=== PATIENT | female | born 1990 | race Caucasian/White ===

== ENCOUNTER → 2020-01-26 | Outpatient (CLI) | payer BC, OTHER ==
[2016-10-16 19:29] VITALS: BP 105/71
[~2020-01-26] MED LIST: HYDR-2761 PO; ONDA4TAB10 SL
--- NOTE | 2020-01-26 11:43 | KCIC ---
EXAM: Bilateral digital diagnostic mammogram with tomosynthesis; bilateral breast sonogram. HISTORY: 29-year-old female presents with a palpable right breast lump and a two-year history of colostrum appearing nipple discharge. TECHNIQUE: Full-field digital craniocaudal and mediolateral oblique 2D and 3D tomosynthesis images of both breasts are obtained for evaluation. Computer aided detection with [employer] software version 9.3 was applied. Sonographic imaging of both breasts including all 4 quadrants and the retroareolar regions was performed. COMPARISON: None. This is a baseline mammogram. BREAST PARENCHYMAL DENSITY: Level C - Heterogeneously dense. FINDINGS: There are multiple circumscribed nodular densities within both breasts, the multiplicity and appearance of which favors benignity. No architectural distortion or suspicious calcification is seen. Sonographic imaging of the right breast demonstrates a bilobed suspected complicated cystic lesion with posterior through transmission at the 12:00 position 5 cm from the nipple measuring 7 mm. There is a similar suspected cystic lesion measuring 5 mm at the 11:00 position 4 cm from the nipple. There is a circumscribed solid-appearing nodule measuring 1.4 cm at the 12:00 position 3 cm from the nipple. There is a similar-appearing suspected solid circumscribed nodule at the 10:00 position 10 cm from the nipple measuring 1.3 cm. There are dilated ducts within the subareolar aspect of the right breast. There are fibrocystic changes throughout the right breast No convincing intraductal lesion is seen. Sonographic imaging of the left breast demonstrates a solid appearing circumscribed hypoechoic nodule at the 2:00 position 9 cm from the nipple measuring 1.3 cm. There is a similar-appearing smaller nodule measuring 8 mm at the 12:00 position 8 cm from the nipple. There are dilated ducts within the subareolar aspect of the left breast. No convincing intraductal lesion is seen. There are fibrocystic changes throughout the left breast. IMPRESSION: 1. Multiple circumscribed nodular densities within both breasts demonstrated mammographically. 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 The lesion at the 10:00 position likely corresponds with the site of palpable concern. 2. Multiple suspected cystic lesions and dilated ducts within both breasts. No convincing intraductal lesion is seen. Given a two-year history of bilateral nipple discharge, a galactogram can be considered if the discharge changes in color, consistency or increases in amount or is readily expressible and there is concern for an occult intraductal lesion. 3. BI-RADS Category 3: Probably benign finding(s). Short term follow up with a bilateral breast sonogram is recommended in 6 months to confirm stability of the aforementioned findings. If your mammogram demonstrates that you have dense breast tissue, which could hide abnormalities, and if you have other risk factors for breast cancer that have been identified, you might benefit from supplemental screening tests that may be suggested by your ordering physician. Dense breast tissue, in and of itself, is a relatively common condition. This information is not provided to cause undue concern, but rather to raise your awareness and to promote discussion with your physician regarding the presence of other risk factors, in addition to dense breast tissue. A report of your mammography results will be sent to you and your physician. You should contact your physician if you have any questions or concerns regarding this report. Mammography is a sensitive method for finding small breast cancers, but it does not detect them all and is not a substitute for careful clinical examination. A negative mammogram does not negate a clinically suspicious finding and should not result in delay in biopsying a clinically suspicious abnormality. PQRS compliance statement - Patient information was entered into a reminder system with a target due date for the next mammogram. "Our facility is accredited by the [employer] Mammography Program." Electronically signed by: Taylor Akbar MD (01/26/2020 11:40 AM) [facility]
== END ==
LOC: KCIC US 09:35
PROVIDERS: ATTEND Family Medicine
DX: N63.10 Unspecified lump in the right breast, unspecified quadrant (principal); N63.20 Unspecified lump in the left breast, unspecified quadrant; N64.89 Other specified disorders of breast
CPT/HCPCS: 76641; 77066; G0279; 77062

== ENCOUNTER → 2021-02-01 | Outpatient (CLI) | payer BC ==
[2016-10-16 19:29] VITALS: BP 105/71
--- NOTE | 2021-02-01 16:30 | RAD ---
EXAM: Ultrasound OB Greater than 14 weeks INDICATION: Reason: ut/size date discpreancy / Spl. Instructions: / History: TECHNIQUE: Real-time obstetrical ultrasound was performed with permanent freeze-frame documentation. COMPARISON: None. FINDINGS: POSITION: Cephalic HEART RATE: 155 beats per minute DEAN: Normal PLACENTA: Posterior, grade 1. Not low-lying CERVICAL LENGTH: 6.2 cm MATERNAL UTERUS: Unremarkable. MATERNAL ADNEXA: Unremarkable. AGE/DATES: Gestational Age by LMP: 19 weeks 5 days Gestation Age by US: 19 weeks 6 days EDC by LMP: 06/23/2021 EDC by US: 06/22/2021 WEIGHT: 314 grams +/- 46 grams PERCENTILE WEIGHT: Not estimated BIOMETRIC PARAMETERS: BPD: 4.7 cm corresponding with 20 weeks 2 days HC: 17.1 cm corresponding with 19 weeks 5 days AC: 14.6 cm corresponding with 19 weeks 6 days FL: 3.1 cm corresponding with 19 weeks 5 days ANATOMY: CARDIAC: Normal four chamber heart. Normal right and left ventricular outflow tracts. UMBILICAL CORD: Normal 3 vessel cord. Normal cord insertion. BRAIN: Unremarkable. NOSE/LIPS: Not well seen SPINE: Unremarkable. EXTREMITIES: Unremarkable. STOMACH: Unremarkable. KIDNEYS: Unremarkable. BLADDER: Unremarkable. IMPRESSION: Normal OB ultrasound demonstrating a single viable fetus in cephalic position. Estimated gestational age of 19 weeks 6 days and EDC of 06/22/2021. Electronically signed by: Shiraz Ellis MD (02/01/2021 4:27 PM) [id number]
== END ==
LOC: US 10:17
PROVIDERS: ATTEND Obstetrics & Gynecology
DX: Z34.92 Encounter for supervision of normal pregnancy, unspecified, second trimester (principal); Z3A.19 19 weeks gestation of pregnancy
CPT/HCPCS: 76805

== ENCOUNTER 2021-03-28 17:08 | Observation (INO) | payer BC ==
[2016-10-16 19:29] VITALS: BP 105/71
[2021-03-28] MEDS ORDERED: IV RINGERS,LACTATED 1000ML 1,000 ML IV PRN (17:30)
[2021-03-28 17:39] LABS: BILIRUBIN,URINE NEGATIVE (NEG); CLARITY,URINE TURBID; COLOR,URINE YELLOW; NITRITE,URINE NEGATIVE (NEG); PROTEIN,URINE NEGATIVE (NEG-TRACE)
[2021-03-28 17:46] LABS: AMORPHOUS SEDIMENT,UR PRESENT /HPF
[2021-03-28 17:47] LABS: BACTERIA,URINE FEW /HPF (0-FEW); RBC,URINE 0 /HPF (0-2)
== END 2021-03-28 18:16 | disposition home or self-care (01) ==
LOC: 3 SO LND 17:08
PROVIDERS: ADMIT Obstetrics & Gynecology; ATTEND Obstetrics & Gynecology
DX: O36.8120 Decreased fetal movements, second trimester, not applicable or unspecified (principal); Z3A.27 27 weeks gestation of pregnancy; Z79.899 Other long term (current) drug therapy
CPT/HCPCS: 59025; 81001; 87086; G0378; G0379

== ENCOUNTER 2021-05-10 19:29 | Inpatient (IN) | payer BC ==
[~2021-05-10] VITALS: Ht 152.4 cm; Wt 64.5 kg
[2021-05-10] MEDS ORDERED: ACETAMINOPHEN 325 MG TABLET. PO PRN ×2 (19:45→21:45)
[2021-05-10 20:00] LABS: BILIRUBIN,URINE SMALL (NEG); CLARITY,URINE CLEAR; COLOR,URINE AMBER; NITRITE,URINE NEGATIVE (NEG); PROTEIN,URINE NEGATIVE (NEG-TRACE)
[2021-05-10 20:06] LABS: BACTERIA,URINE 0 /HPF (0-FEW); RBC,URINE 0 /HPF (0-2); WBC,URINE OCC /HPF (0-4)
[2021-05-10 20:07] LABS: AMPHETAMINE/METHAMPHETAMINE NEG (NEG); BARBITURATES NEG (NEG); BENZODIAZEPINES NEG (NEG); CANNABINOIDS POS (NEG); COCAINE NEG (NEG); METHADONE NEG (NEG); OPIATES NEG (NEG); PHENCYCLIDINE NEG (NEG)
[2021-05-10] MEDS: IV RINGERS,LACTATED 1000ML 1,000 ML IV PRN ×2 (20:15→21:13)
[2021-05-10 21:24] LABS: AMNIO PT POSITIVE
[2021-05-10] MEDS ORDERED: AZITHROMYCIN 250 MG TABLET. PO ONE (21:30)
[2021-05-10] MEDS ORDERED: AMPICILLIN SODIUM 2 GM in IV NORMAL SALINE 100ML 100 ML IV ONE (21:30)
--- NOTE | 2021-05-10 21:30 | PDOC1 ---
MUSIC SOUND LIGHT TECHNICIAN H&P Date of Admission: Date of Admission: May 10, 2021 at 19:29 History of Present Illness: EDC: 06/23/21 LMP: 09/16/20 31y @ 33.5 by L=7 who presented to L&D with ctxs. The pt was ctxing frequently (q1-2 min). At the time the pt was dilated to 2 cm. About an hour into her eval she reported LOF. She was grossly ruptured and had positive aminoswab. The pt was started on abx for latency and started on a course of BMTZ. PMH: Kidney stones. PSH: wisdom teeth extraction. Meds: PNV, Zofran All: NKDA OBHx: TSVD x 2 SH: 1/2 PPD, no EtOH FH: Adopted, family history unknown. Medications: Meds: Current Medications Medications (Trade) Dose Ordered Sig/Cooper Route PRN Reason Start Time Stop Time Status Last Admin Dose Admin Ringer's Solution 1,000 ml @ 125 mls/hr Q8H PRN IV hydration 05/10/21 19:45 05/10/21 21:13 Allergies: Coded Allergies: No Known Drug Allergies (Unverified , 11/28/14) Physical Exam: PE: GENERAL: No apparent distress. Alert and oriented. HEENT: Head normocephalic, atraumatic. NECK: Supple LUNGS: Clear to auscultation. HEART: RRR, S1, S2 present, pulses intact ABDOMEN: Soft, positive bowel sounds. EXTREMITIES: No cyanosis or edema. NEUROLOGIC: Normal speech, normal tone PSYCHIATRIC: Normal affect, normal mood. SKIN: No ulceration. FHT: 130s +acels/no decls/mLTV [place]: 2-3 min SVE: 2-3 min Labs: Laboratory Tests Test 05/10/21 19:50 05/10/21 21:05 Urine Collection Type Unknown Urine Color Yolanda Urine Clarity Clear Urine pH 6.0 (<5.0-8.0) Urine Specific [place] 1.025 (1.000-1.030) Urine Protein Negative mg/dL (NEG-TRACE) Urine Glucose (UA) Negative mg/dL (NEG) Urine Ketones (Stick) Trace mg/dL (NEG) Urine Blood Negative (NEG) Urine Nitrite Negative (NEG) Urine Bilirubin Small (NEG) Urine Urobilinogen Dipstick 1.0 mg/dL (0.2 mg/dL) Urine Leukocyte Esterase Negative (NEG) Urine RBC 0 /HPF (0-2) Urine WBC Occ /HPF (0-4) Urine Squamous Epithelial Cells Mod /LPF Urine Bacteria 0 /HPF (0-FEW) Urine Mucus Marked /LPF Urine Opiates Screen Neg (NEG) Urine Methadone Screen Neg (NEG) Urine Barbiturates Neg (NEG) Urine Phencyclidine Screen Neg (NEG) Urine Amphetamine/Methamphetamine Neg (NEG) Urine Benzodiazepines Screen Neg (NEG) Urine Cocaine Screen Neg (NEG) Urine Cannabinoids Screen Pos (NEG) Urine Ethyl Alcohol Neg (NEG) Amniotic Fluid Swab Test Positive Assessment & Plan: A/P 31y @ 33.5 by L=7 1.) PPROM started on Azirtho/Amp for latency, will induce at 34wks 2.) PTC due to gestation will stop ctxs 3.) N/V - on Zofran 4.) Jesus NI 5.) Tob use - discussed cessation 6.) Fetus cat I FHT, vtx by BSUS, BMTZ #1 at 2216 7.) GBS obtained on Amp until results return 8.) DPS - Pvt insurance 9.) Pap PP 10.) Boy - Jatin 11.) TDAP given 04/18/21 CHRISTIANO UGTIERREZ MD May 10, 2021 21:30
[2021-05-10 21:45] VITALS: BP 126/60
[2021-05-10] MEDS ORDERED: 0.9 % SODIUM CHLORIDE 10 ML DISP.SYRIN. IV PRN (21:45)
[2021-05-10] MEDS ORDERED: TERBUTALINE 1 MG/ML VIAL. SQ PRN (21:45)
[2021-05-10] MEDS ORDERED: OXYTOCIN 30 UNIT/500 ML PREMIX 500 ML IV PRN ×2 (21:45)
[2021-05-10] MEDS ORDERED: LIDOCAINE 1% PF 30 ML VIAL. INJ PRN (21:45)
[2021-05-10] MEDS ORDERED: BUTORPHANOL 2 MG/ML VIAL. IVP PRN ×2 (21:45)
[2021-05-10] MEDS ORDERED: IV RINGERS,LACTATED 1000ML 1,000 ML IV SCH (21:45)
[2021-05-10] MEDS: BETAMET ACET&NA PHOS 30 MG/5 ML VIAL. IM SCH (22:16)
[2021-05-10 22:23] LABS: BASO % 0 % (0-3); EOS # 0.4 x10^3/uL (0.0-0.7); EOS % 2 % (0-3); HEMATOCRIT 33.5 % (36.0-47.0); HEMOGLOBIN 11.6 g/dL (12.0-15.5); LYMPH # 3.4 x10^3/uL (1.0-4.8); LYMPH % 20 % (24-48); MEAN CORPUSCULAR HEMOGLOBIN 28 pg (25-35); MEAN CORPUSCULAR HGB CONC 35 g/dL (31-37); MEAN CORPUSCULAR VOLUME 81 fL (79-100); MONO # 1.2 x10^3/uL (0.0-1.1); MONO % 7 % (0-9); NEUT % 71 % (31-73); PLATELET COUNT 248 x10^3/uL (140-400); RED BLOOD COUNT 4.16 x10^6/uL (3.50-5.40); RED CELL DISTRIBUTION WIDTH 13.8 % (11.5-14.5)
[2021-05-11] MEDS: AMPICILLIN SODIUM 1 GM in IV NORMAL SALINE 50ML 50 ML IV SCH ×6 (01:38→21:19)
[2021-05-11] MEDS: IV RINGERS,LACTATED 1000ML 1,000 ML IV PRN ×2 (05:05→18:58)
--- NOTE | 2021-05-11 09:49 | PDOC ---
SUPERVISOR [employer]S PROGRESS NOTE Date of Service: DATE: 05/11/21 TIME: 09:49 Subjective: Discussed plan with pt. Pt not feeling many ctxs at this point Objective: Vital Signs: Vital Signs Date Time Temp Pulse Resp B/P (MAP) Pulse Ox O2 Delivery O2 Flow Rate FiO2 05/10/21 21:45 98.7 105 18 126/60 (82) 96 Room Air 98.7 Vital Signs Date Time Temp Pulse Resp B/P (MAP) Pulse Ox O2 Delivery O2 Flow Rate FiO2 05/10/21 21:45 98.7 105 18 126/60 (82) 96 Room Air 98.7 Labs: Laboratory Tests Test 05/10/21 19:50 05/10/21 21:05 05/10/21 22:14 05/10/21 22:25 Urine Collection Type Unknown Urine Color Yolanda Urine Clarity Clear Urine pH 6.0 (<5.0-8.0) Urine Specific [place] 1.025 (1.000-1.030) Urine Protein Negative mg/dL (NEG-TRACE) Urine Glucose (UA) Negative mg/dL (NEG) Urine Ketones (Stick) Trace mg/dL (NEG) Urine Blood Negative (NEG) Urine Nitrite Negative (NEG) Urine Bilirubin Small (NEG) Urine Urobilinogen Dipstick 1.0 mg/dL (0.2 mg/dL) Urine Leukocyte Esterase Negative (NEG) Urine RBC 0 /HPF (0-2) Urine WBC Occ /HPF (0-4) Urine Squamous Epithelial Cells Mod /LPF Urine Bacteria 0 /HPF (0-FEW) Urine Mucus Marked /LPF Urine Opiates Screen Neg (NEG) Urine Methadone Screen Neg (NEG) Urine Barbiturates Neg (NEG) Urine Phencyclidine Screen Neg (NEG) Urine Amphetamine/Methamphetamine Neg (NEG) Urine Benzodiazepines Screen Neg (NEG) Urine Cocaine Screen Neg (NEG) Urine Cannabinoids Screen Pos (NEG) Urine Ethyl Alcohol Neg (NEG) Amniotic Fluid Swab Test Positive White Blood Count 17.0 x10^3/uL (4.0-11.0) H Red Blood Count 4.16 x10^6/uL (3.50-5.40) Hemoglobin 11.6 g/dL (12.0-15.5) L Hematocrit 33.5 % (36.0-47.0) L Mean Corpuscular Volume 81 fL (79-100) Mean Corpuscular Hemoglobin 28 pg (25-35) Mean Corpuscular Hemoglobin Concent 35 g/dL (31-37) Red Cell Distribution Width 13.8 % (11.5-14.5) Platelet Count 248 x10^3/uL (140-400) Neutrophils (%) (Auto) 71 % (31-73) Lymphocytes (%) (Auto) 20 % (24-48) L Monocytes (%) (Auto) 7 % (0-9) Eosinophils (%) (Auto) 2 % (0-3) Basophils (%) (Auto) 0 % (0-3) Neutrophils # (Auto) 12.0 x10^3/uL (1.8-7.7) H Lymphocytes # (Auto) 3.4 x10^3/uL (1.0-4.8) Monocytes # (Auto) 1.2 x10^3/uL (0.0-1.1) H Eosinophils # (Auto) 0.4 x10^3/uL (0.0-0.7) Basophils # (Auto) 0.0 x10^3/uL (0.0-0.2) Treponema pallidum Antibody Nonreactive (Nonreactive) SARS-CoV-2 RNA (SANGEETA) Negative (Negative) SARS-CoV-2 Antigen (Rapid) Negative (NEGATIVE) Laboratory Tests 05/10/21 22:14 Laboratory Tests 05/10/21 22:14 Physical Exam: GENERAL: No apparent distress. Alert and oriented. HEENT: Head normocephalic, atraumatic. NECK: Supple LUNGS: Clear to auscultation. HEART: RRR, S1, S2 present, pulses intact ABDOMEN: Soft, positive bowel sounds. EXTREMITIES: No cyanosis or edema. NEUROLOGIC: Normal speech, normal tone PSYCHIATRIC: Normal affect, normal mood. SKIN: No ulceration. FHT: 150s +acels/no decls/mLTV [place]: 10-15 min Assessment & Plan: A/P 31y @ 33.6 by L=7 1.) PPROM on Azirtho/Amp for latency, AF, no s/s of infection or abruption, will induce at 34wks 2.) PTC ctxs have slowed since last night 3.) N/V - on Zofran 4.) Jesus NI 5.) Tob use - discussed cessation 6.) Fetus cat I FHT, vtx by BSUS, BMTZ #1 at 2216 7.) GBS pending on Amp until results return 8.) DPS - Pvt insurance 9.) Pap PP 10.) Boy - Jatin 11.) TDAP given 04/18/21 CHRISTIANO GUTIERREZ MD May 11, 2021 09:49
[2021-05-11] MEDS: BETAMET ACET&NA PHOS 30 MG/5 ML VIAL. IM SCH (18:47)
[2021-05-11] MEDS: CALCIUM CARBONATE 500 MG TAB.CHEW PO PRN (19:20)
[2021-05-12] MEDS: AMPICILLIN SODIUM 1 GM in IV NORMAL SALINE 50ML 50 ML IV SCH ×3 (01:15→09:30)
--- NOTE | 2021-05-12 07:49 | PDOC ---
WASTE COTTON CLEANER PROGRESS NOTE Date of Service: DATE: 05/12/21 TIME: 07:46 Subjective: Pt comfortable. Will allow to eat breakfast. Physical Exam: GENERAL: No apparent distress. Alert and oriented. HEENT: Head normocephalic, atraumatic. NECK: Supple LUNGS: Clear to auscultation. HEART: RRR, S1, S2 present, pulses intact ABDOMEN: Soft, positive bowel sounds. EXTREMITIES: No cyanosis or edema. NEUROLOGIC: Normal speech, normal tone PSYCHIATRIC: Normal affect, normal mood. SKIN: No ulceration. Assessment & Plan: A/P 31y @ 34.0 by L=7 1.) PPROM on Azirtho/Amp for latency, AF, no s/s of infection or abruption, will start Pit now since 34wks 2.) N/V - on Zofran 3.) Jesus NI 4.) Tob use - discussed cessation 5.) Fetus cat I FHT, vtx by BSUS, BMTZ #2 at 2216 6.) GBS pending on Amp 7.) DPS - Pvt insurance 8.) Pap PP 9.) Boy - Jatin 10.) TDAP given 04/18/21 CHRISTIANO GUTIERREZ MD May 12, 2021 07:49
[2021-05-12] MEDS ORDERED: OXYTOCIN 30 UNIT/500 ML PREMIX 500 ML IV PRN ×2 (08:00→15:00)
[2021-05-12] MEDS ORDERED: OXYTOCIN PREMIX 30 UNIT/500 ML NS BAG. IV ONE (08:00)
[2021-05-12 08:25] VITALS: BP 95/62
[2021-05-12] MEDS: CALCIUM CARBONATE 500 MG TAB.CHEW PO PRN (09:12)
[2021-05-12] MEDS: IV RINGERS,LACTATED 1000ML 1,000 ML IV PRN (10:14)
[2021-05-12] MEDS ORDERED: ROPIVacaine 0.2% PF 10 ML VIAL. ONE ×2 (10:46→11:00)
[2021-05-12] MEDS ORDERED: fentaNYL PF VIAL 100 MCG/2 ML VIAL ONE (10:46)
[2021-05-12] MEDS ORDERED: L&D EPIDURAL SYRINGE 50 ML ONE (10:47)
[2021-05-12] MEDS ORDERED: L&D EPIDURAL 50 ML SYRINGE. ONE (11:00)
[2021-05-12] MEDS ORDERED: NALOXONE 0.4 MG/ML VIAL. IV PRN (11:45)
[2021-05-12] MEDS ORDERED: IV RINGERS,LACTATED 1000ML 1,000 ML IV ONE (11:45)
[2021-05-12] MEDS ORDERED: L&D EPIDURAL SYRINGE 50 ML EPID PRN (11:45)
[2021-05-12] MEDS ORDERED: fentaNYL PF VIAL 100 MCG/2 ML VIAL EPID ONE (11:45)
[2021-05-12] MEDS ORDERED: ePHEDrine PF IN SALINE 50 MG/10 ML SYRINGE. IV PRN (11:45)
[2021-05-12] MEDS ORDERED: ONDANSETRON PF 4 MG/2 ML VIAL. IV PRN (11:45)
--- NOTE | 2021-05-12 14:56 | PDOC ---
VAGINAL DELIVERY DATE DATE: 05/12/21 TIME: 14:56 TIME Patient delivered a viable male infant over intact perineum at 1440. Wt 4 lb 8 oz. Apgars 8/8. Placenta delivered spontaneously, intact with 3VC. No lacerations noted. Good hemostasis noted. 20 U of Pit given with IVF. EBL 100cc. WEIGHT Weight [ ] CHRISTIANO GUTIERREZ MD May 12, 2021 14:56
[2021-05-12] MEDS ORDERED: MAG HYDROX/ALUMINUM HYD/SIMETH 30 ML ORAL.SUSP PO PRN (15:00)
[2021-05-12] MEDS ORDERED: 0.9 % SODIUM CHLORIDE 10 ML DISP.SYRIN. IV PRN (15:00)
[2021-05-12] MEDS ORDERED: TDaP (Adacel) per PROTOCOL. MC PRN (15:00)
[2021-05-12] MEDS ORDERED: HYDROCORTISONE 1% TOPICAL OINTMENT 30GM TUBE. TP PRN (15:00)
[2021-05-12] MEDS ORDERED: ACETAMINOPHEN 325 MG TABLET. PO PRN (15:00)
[2021-05-12] MEDS ORDERED: ZOLPIDEM 5 MG TABLET. PO PRN (15:00)
[2021-05-12] MEDS ORDERED: BENZOCAINE 20% TOPICAL AEROSOL SPRAY 57GM CAN. TP PRN (15:00)
[2021-05-12] MEDS ORDERED: PHENYLEPH/MINERAL OIL/PETROLAT RECTAL OINTMENT TUBE. RC PRN (15:00)
[2021-05-12] MEDS ORDERED: MAGNESIUM HYDROXIDE 2,400 MG/30 ML ORAL.SUSP. PO PRN (15:00)
[2021-05-12] MEDS ORDERED: oxyCODONE/APAP 5/325 1 TAB TABLET PO PRN (15:00)
[2021-05-12] MEDS ORDERED: MMR per PROTOCOL. MC PRN (15:00)
[2021-05-12] MEDS ORDERED: diphenhydrAMINE HCL 25 MG CAPSULE PO PRN (15:00)
[2021-05-12] MEDS ORDERED: IBUPROFEN 400 MG TABLET. PO PRN (15:00)
[2021-05-12] MEDS ORDERED: SIMETHICONE 80 MG TAB.CHEW PO PRN (15:00)
[2021-05-12] MEDS ORDERED: DOCUSATE SODIUM 100 MG CAPSULE. PO PRN (15:00)
[2021-05-12] MEDS: FERROUS SULFATE 325 MG TABLET. PO SCH (17:00)
[2021-05-12 18:00] VITALS: BP 101/48
[2021-05-12 20:25] VITALS: BP 97/64
[2021-05-13 03:00] VITALS: BP 98/48
[2021-05-13 07:13] LABS: HEMATOCRIT 31.5 % (36.0-47.0); HEMOGLOBIN 10.5 g/dL (12.0-15.5); RED BLOOD COUNT 3.83 x10^6/uL (3.50-5.40); RED CELL DISTRIBUTION WIDTH 14.1 % (11.5-14.5); WHITE BLOOD COUNT 16.2 x10^3/uL (4.0-11.0)
[2021-05-13 07:30] VITALS: BP 95/62
[2021-05-13] MEDS: FERROUS SULFATE 325 MG TABLET. PO SCH (08:00)
[2021-05-13] MEDS ORDERED: PRENATAL MULTIVITAMIN TABLET. PO SCH (09:00)
[2021-05-13] MEDS ORDERED: IBUP-1060 PO (12:01)
[2021-05-13] MEDS ORDERED: DOCU-109 PO (12:01)
--- NOTE | 2021-05-13 12:17 | PDOC ---
COMPENSATION COORDINATOR PROGRESS NOTE Date of Service: DATE: 05/13/21 TIME: 12:16 Subjective: Pt with good pain control. Dottie PO. Voiding. Minimal lochia Objective: Vital Signs: Vital Signs Date Time Temp Pulse Resp B/P (MAP) Pulse Ox O2 Delivery O2 Flow Rate FiO2 05/12/21 08:25 97.7 69 18 95/62 (73) 97 Room Air 97.7 Vital Signs Date Time Temp Pulse Resp B/P (MAP) Pulse Ox O2 Delivery O2 Flow Rate FiO2 05/13/21 07:30 98.0 62 18 95/62 (73) 97 Room Air 98.0 Labs: Laboratory Tests Test 05/13/21 07:00 White Blood Count 16.2 x10^3/uL (4.0-11.0) H Red Blood Count 3.83 x10^6/uL (3.50-5.40) Hemoglobin 10.5 g/dL (12.0-15.5) L Hematocrit 31.5 % (36.0-47.0) L Mean Corpuscular Volume 83 fL (79-100) Mean Corpuscular Hemoglobin 27 pg (25-35) Mean Corpuscular Hemoglobin Concent 33 g/dL (31-37) Red Cell Distribution Width 14.1 % (11.5-14.5) Platelet Count 217 x10^3/uL (140-400) Laboratory Tests 05/13/21 07:00 Laboratory Tests 05/13/21 07:00 Physical Exam: GENERAL: No apparent distress. Alert and oriented. HEENT: Head normocephalic, atraumatic. NECK: Supple LUNGS: Clear to auscultation. HEART: RRR, S1, S2 present, pulses intact ABDOMEN: Soft, positive bowel sounds. EXTREMITIES: No cyanosis or edema. NEUROLOGIC: Normal speech, normal tone PSYCHIATRIC: Normal affect, normal mood. SKIN: No ulceration. FFNT below umb No C/C/E Assessment & Plan: A/P 31y PPD #1 s/p at 34.0 for PPROM 1.) PP doing well 2.) PPROM s/p Azirtho/Amp for latency, AF, but WBC of 17 on admission, no s/s of infection or abruption, some bleeding noted during indxn, placenta sent to path 3.) Jesus NI 4.) Tob use - discussed cessation 5.) GBS pending 6.) DPS - Pvt insurance, plans to get after 6wks 7.) Hgb 11.6 -> 10.5 8.) Ziggy Steiner 9.) TDAP given 04/18/21 CHRISTIANO GUTIERREZ MD May 13, 2021 12:17
[2021-05-13 13:30] VITALS: BP 109/65
--- NOTE | 2021-05-13 13:31 | NUR ---
Discharge Note: MARCO GOODWIN M3 SO LND Discharge instructions and discharge home medications reviewed with Patient and a copy given. All questions have been answered and understanding verbalized. MD aware of pt. PP Depression screen. MD states to have pt. call his office if symptoms worsen. The following instructions and handouts were given: delivery Care after Vaginal Delivery Depression and Baby Blues Patient discharged to home with self-care via ambulation to private vehicle. Pt. will switch to boarder status while infant continues in SCN. All pt. belongings sent with pt. at time of dismissal.
--- NOTE | 2021-05-13 20:27 | DS ---
DATE OF DISCHARGE: 05/13/2021 ADMISSION DIAGNOSES: 1. Intrauterine at 33 weeks and 5 days by last menstrual period equal to a 7-week ultrasound. 2. premature rupture of membranes. 3. contractions. 4. Nausea and vomiting. 5. Varicella nonimmune. 6. Tobacco use. 7. Group B Streptococcus unknown. 8. Desires permanent sterilization. 9. Status post Tdap. DISCHARGE DIAGNOSES: 1. Intrauterine at 33 weeks and 5 days by last menstrual period equal to a 7-week ultrasound. 2. premature rupture of membranes. 3. contractions. 4. Nausea and vomiting. 5. Varicella nonimmune. 6. Tobacco use. 7. Group B Streptococcus unknown. 8. Desires permanent sterilization. 9. Status post Tdap. PROCEDURE: Spontaneous vaginal delivery. BRIEF HOSPITAL COURSE: The patient is a 31-year-old 3, para 2-0-0-2, who presented to Labor and Delivery at 33 weeks and 5 days by LMP equal to a 7-week ultrasound with contractions. The patient was araceli every 1-2 minutes. At the time of presentation, the patient was found to be 2 cm dilated. After an hour into her evaluation, the patient reported leakage of fluid. The patient was found to be grossly ruptured. The patient was subsequently admitted. She was started on antibiotics for latency and started on a course of betamethasone along with collecting a GBS. She was noted to have a white count of 17 on admission, but no left shift. The patient's contractions dissipated over the course of the night. During the following evening, the patient also had another big gush of fluid, but did not go into labor. Once the patient reached 34 weeks, she was started on Pitocin for induction. Over the course of her hospitalization and induction the patient had no signs or symptoms of abruption or infection. The patient ultimately delivered by that afternoon. Of note, there were By day #1, the patient was meeting all discharge criteria and desired discharge home. DISCHARGE INSTRUCTIONS: The patient was told not to lift anything greater than 20 pounds and to have pelvic rest for 6 weeks. CALL IF: The patient is to call if she had fevers, chills, nausea, vomiting, abdominal pain or any additional questions or concerns. FOLLOWUP APPOINTMENT: The patient was to follow up on 06/21 at 09:30 a.m. DISCHARGE MEDICATIONS: The patient was given a prescription for Motrin 800 mg, 30 pills and Colace 100 mg, 30 pills. MILTON/GERRY/JEFFREY DR: MILTON/tricia TID: [id number] MTDD
--- NOTE | 2021-05-16 19:07 | PATHOLOGY ---
[facility] Accession Number: [id number] . 01 Material submitted: . placenta - PLACENTA AND CORD. Modifiers: CORD . 01 Clinical history: . VAGINAL DELIVERY VAGINAL DELIVERY GROSS AND MICRO SEE DELIVERY ROOM (SEE REQ) . 02 Diagnosis: 320 gram late placenta of an estimated 34 weeks gestation with attached membranes and umbilical cord: - Placental weight approximate 25th percentile. - Focal mild villous edema. (JPM:ren; 05/16/2021) MBR 05/16/2021 1541 Local . 02 Comment: There is no evidence of an acute chorioamnionitis or villitis. There are no infarcts. (JPM:ren; 05/16/2021) . 02 Electronically signed: . Collins Betts MD, Pathologist NPI- [id number] . 01 Gross description: . Labeled: Placenta Specimen received: in formalin Trimmed placental weight: 320 gm Dimensions: 15 x 13 x 2.5 cm membranes: pink-bennett glistening membrane rupture: 7.2 cm from placental disc edge membrane insertion: Marginal Umbilical cord: 26 cm in length, 1.1 cm in diameter; there are no knots identified Umbilical cord insertion: paracentral, 4.2 cm from the closest placental margin Number of umbilical vessels: Three surface: mcdaniel-blue glistening and well vascularized Maternal surface: Red-Brown and unremarkable Abnormalities: None . Television Repair Teacher sections are submitted in 4 cassettes as follows: A1 proximal and distal umbilical cord A2 membranes, Rolled and maternal surface A3 software sales representative peripheral placenta A4 software sales representative central placenta with surface adjacent to umbilical cord insertion site (ML; 05/15/2021) PUNEET/PUNEET 05/16/2021 1540 Local . 02 Pathologist provided ICD-10: O43.893, Z37.0, Z3A.34 . 02 CPT . 358061 Specimen Comment: A courtesy copy of this report has been sent to [phone] Specimen Comment: Report sent to Performed at: [address], [place] [id number] MD Tanner Peña MD Phone: [phone] Performed at: [address] [id number] MD Collins Betts MD Phone: [phone]
== END 2021-05-13 14:43 | disposition home or self-care (01) | DRG 805 ==
LOC: 3 SO LND 19:29 → OBSVTOIN 19:29 → 3 SO LND 05-12 17:05
PROVIDERS: ADMIT Obstetrics & Gynecology; ATTEND Obstetrics & Gynecology
PROC: 10E0XZZ Delivery of Products of Conception, External Approach (ICD-10-PCS; principal; 2021-05-12)
PROC: 3E033VJ Introduction of Other Hormone into Peripheral Vein, Percutaneous Approach (ICD-10-PCS; 2021-05-12)
DX: O42.913 Preterm premature rupture of membranes, unspecified as to length of time between rupture and onset of labor, third trimester (principal); O60.14X0 Preterm labor third trimester with preterm delivery third trimester, not applicable or unspecified; Z37.0 Single live birth; O99.334 Smoking (tobacco) complicating childbirth; Z3A.33 33 weeks gestation of pregnancy; Z87.442 Personal history of urinary calculi; F17.210 Nicotine dependence, cigarettes, uncomplicated; Z71.6 Tobacco abuse counseling; Z20.822 Contact with and (suspected) exposure to COVID-19
CPT/HCPCS: 36415; 80307; 81001; 84112; 85025; 85027; 86592; 86850; 86900; 86901; 87426; 87653; J0290; J0702; J2590; J2795; J3010; J7120; U0003; U0005; G0378

== ENCOUNTER → 2021-06-25 | Outpatient (CLI) | payer BC ==
[~2021-06-25] MED LIST changes: +DOCU-109 PO; +IBUP-1060 PO; +OXYC1TAB15 PO; +PARO20TA99 PO; +PNV1TABL78 PO
== END ==
LOC: LAB 09:40
PROVIDERS: ATTEND Obstetrics & Gynecology
DX: Z01.812 Encounter for preprocedural laboratory examination (principal); Z20.822 Contact with and (suspected) exposure to COVID-19
CPT/HCPCS: U0003; U0005

== ENCOUNTER 2021-06-26 08:02 | Day surgery (SDC) | payer BC ==
[~2021-06-26] VITALS: Ht 152.4 cm; Wt 60.5 kg
[~2021-06-26 08:02] MED LIST changes: +HYDROmorphone 2 MG/ML VIAL IVP PRN; +IV RINGERS,LACTATED 1000ML 1,000 ML IV SCH; +MORPHINE SULFATE 2 MG/ML INJ. IVP PRN; -OXYC1TAB15 PO; +PROCHLORPERAZINE 10 MG/2 ML VIAL. IVP PRN; +fentaNYL PF VIAL 100 MCG/2 ML VIAL IVP PRN
[2021-06-26 08:04] VITALS: BP 153/81
[2021-06-26 08:19] LABS: BASO # 0.1 x10^3/uL (0.0-0.2); BASO % 1 % (0-3); EOS # 0.6 x10^3/uL (0.0-0.7); EOS % 6 % (0-3); HEMATOCRIT 39.5 % (36.0-47.0); HEMOGLOBIN 13.1 g/dL (12.0-15.5); LYMPH # 2.5 x10^3/uL (1.0-4.8); LYMPH % 27 % (24-48); MEAN CORPUSCULAR HEMOGLOBIN 27 pg (25-35); MEAN CORPUSCULAR HGB CONC 33 g/dL (31-37); MEAN CORPUSCULAR VOLUME 83 fL (79-100); MONO # 0.6 x10^3/uL (0.0-1.1); MONO % 7 % (0-9); NEUT # 5.5 x10^3/uL (1.8-7.7); NEUT % 59 % (31-73); PLATELET COUNT 321 x10^3/uL (140-400); RED BLOOD COUNT 4.78 x10^6/uL (3.50-5.40); RED CELL DISTRIBUTION WIDTH 14.2 % (11.5-14.5); WHITE BLOOD COUNT 9.3 x10^3/uL (4.0-11.0)
[2021-06-26] MEDS ORDERED: ONDANSETRON PF 4 MG/2 ML VIAL. ONE (08:54)
[2021-06-26] MEDS ORDERED: DEXAMETHASONE SOD PHOS 4 MG/ML VIAL ONE (08:54)
[2021-06-26] MEDS ORDERED: PROPOFOL 10 MG/ML (20ML) VIAL. IV ONE (08:54)
[2021-06-26] MEDS ORDERED: LIDOCAINE 2% PF 5 ML VIAL. ONE (08:54)
[2021-06-26] MEDS ORDERED: ROCURONIUM 50 MG/5 ML VIAL. ONE (08:55)
[2021-06-26] MEDS ORDERED: MIDAZOLAM HCL/PF 2 MG/2 ML VIAL. ONE (08:56)
[2021-06-26] MEDS ORDERED: fentaNYL PF VIAL 100 MCG/2 ML VIAL ONE ×2 (10:17→11:27)
[2021-06-26] MEDS ORDERED: GLYCOPYRROLATE 1 MG/5 ML VIAL. ONE (10:29)
[2021-06-26] MEDS ORDERED: NEOSTIGMINE METHYLSULFATE 5 MG/5 ML SYRINGE. ONE (10:29)
--- NOTE | 2021-06-26 10:33 | PDOC1 ---
DIRECTOR OF MEDICAL SERVICES H&P Date of Admission: Date of Admission: History of Present Illness: 31y presents for scheduled BTL . The pt is s/p at 34.0 on 05/12/21. PMH: Kidney stones PSH: wisdom teeth extraction Meds: PNV All: NKDA OBHx: TSVD x 2, 34wk x 1 Air Twister Winder: LMP 09/16/2020. SH: 1/4 PPD, no EtOH FH: Adopted, family history unknown Medications: Meds: Current Medications Medications (Trade) Dose Ordered Sig/Cooper Route PRN Reason Start Time Stop Time Status Last Admin Dose Admin Ringer's Solution 1,000 ml @ 30 mls/hr Q24H IV 06/26/21 06:00 06/26/21 17:59 06/26/21 08:09 Allergies: Coded Allergies: No Known Drug Allergies (Unverified , 06/26/21) Physical Exam: Vital Signs: Vital Signs Date Time Temp Pulse Resp B/P (MAP) Pulse Ox O2 Delivery O2 Flow Rate FiO2 06/26/21 08:04 97.3 76 20 98 97.3 06/26/21 07:51 153/81 Room Air PE: GENERAL: No apparent distress. Alert and oriented. HEENT: Head normocephalic, atraumatic. NECK: Supple LUNGS: Clear to auscultation. HEART: RRR, S1, S2 present, pulses intact ABDOMEN: Soft, positive bowel sounds. EXTREMITIES: No cyanosis or edema. NEUROLOGIC: Normal speech, normal tone PSYCHIATRIC: Normal affect, normal mood. SKIN: No ulceration. Labs: Laboratory Tests Test 06/26/21 07:00 06/26/21 07:50 POC Urine HCG, Qualitative Hcg negative (Negative) White Blood Count 9.3 x10^3/uL (4.0-11.0) Red Blood Count 4.78 x10^6/uL (3.50-5.40) Hemoglobin 13.1 g/dL (12.0-15.5) Hematocrit 39.5 % (36.0-47.0) Mean Corpuscular Volume 83 fL (79-100) Mean Corpuscular Hemoglobin 27 pg (25-35) Mean Corpuscular Hemoglobin Concent 33 g/dL (31-37) Red Cell Distribution Width 14.2 % (11.5-14.5) Platelet Count 321 x10^3/uL (140-400) Neutrophils (%) (Auto) 59 % (31-73) Lymphocytes (%) (Auto) 27 % (24-48) Monocytes (%) (Auto) 7 % (0-9) Eosinophils (%) (Auto) 6 % (0-3) H Basophils (%) (Auto) 1 % (0-3) Neutrophils # (Auto) 5.5 x10^3/uL (1.8-7.7) Lymphocytes # (Auto) 2.5 x10^3/uL (1.0-4.8) Monocytes # (Auto) 0.6 x10^3/uL (0.0-1.1) Eosinophils # (Auto) 0.6 x10^3/uL (0.0-0.7) Basophils # (Auto) 0.1 x10^3/uL (0.0-0.2) Laboratory Tests 06/26/21 07:50 Laboratory Tests 06/26/21 07:50 Assessment & Plan: A/P 31y DPS 1.) DPS - scheduled for BTL 2.) Tob CHRISTIANO Coy MD Jun 26, 2021 10:33
[2021-06-26] MEDS ORDERED: ePHEDrine PF IN SALINE 50 MG/10 ML SYRINGE. IV ONE (10:35)
[2021-06-26] MEDS: fentaNYL PF VIAL 100 MCG/2 ML VIAL IVP PRN ×2 (11:29→11:52)
[2021-06-26] MEDS ORDERED: OXYC1TAB15 PO (11:37)
[2021-06-26] MEDS ORDERED: IBUP-1060 PO (11:37)
[2021-06-26] MEDS ORDERED: DOCU-109 PO (11:37)
[2021-06-26] MEDS ORDERED: oxyCODONE/APAP 5/325 1 TAB TABLET PO ONE (12:15)
[2021-06-26 12:20] VITALS: BP 99/55
--- NOTE | 2021-06-26 12:34 | PDOC4 ---
OPERATIVE NOTE: PreOp Dx: DPS, Multiparty Post Op Dx: same Procedure: L/S bilateral partial salpingectomy Surgeon: Meredith Gutierrez Anesthesia: GETA Fluids: 300 cc EBL: 20 cc Complications: none Finding: nml tube and ovaries Path: bilateral tubal segments CHRISTIANO GUTIERREZ MD Jun 26, 2021 12:34
--- NOTE | 2021-06-26 13:04 | OP ---
DATE OF SURGERY: 06/26/2021 PREOPERATIVE DIAGNOSES: 1. Desires permanent sterilization. 2. Multiparity. POSTOPERATIVE DIAGNOSES: 1. Desires permanent sterilization. 2. Multiparity. PROCEDURE: Laparoscopic bilateral partial salpingectomy. SURGEON: Johnathon Lubin MD TYPE OF ANESTHESIA: General endotracheal intubation. ESTIMATED BLOOD LOSS: 20 mL. FLUIDS: 300 mL. COMPLICATIONS: None. FINDINGS: Normal tubes and ovaries. PATHOLOGY: Bilateral tubal segments. DESCRIPTION OF PROCEDURE: The patient was taken to the operating room where general endotracheal intubation was obtained without difficulty. The patient was prepped and draped in normal sterile fashion. A sponge stick was placed in the patient's vagina and attention was then turned to the abdomen where a 5 mm skin incision was placed in the infraumbilical fold. A Veress needle was then placed into her abdomen. The abdomen was then insufflated to 15 mmHg. Once that was occurred, a 5 mm trocar was then placed directly into the abdomen. Intraabdominal placement was confirmed with laparoscope. Visualization of the pelvis revealed normal anatomy. A second trocar was then placed on the left approximately two-thirds between the ischial spine and the umbilicus first by making a 5 mm skin incision, then by placing a 5 mm trocar under direct visualization of laparoscope. This was then performed on the right side where a 5 mm skin incision was made approximately two-thirds between the ischial spine and the umbilicus, then followed by placing a 5 mm trocar under direct visualization of the laparoscope. At that point, the left tube was followed out to the fimbria. A portion approximately 3 cm from the uterine isthmus was then grabbed. This 3 cm segment of tube was then ligated and cut out with the Harmonic scalpel. This was then sent to pathology. Attention was then turned to the right tube where approximately 2 cm from the isthmus region, the tube was grasped and this 3 cm segment of the tube was then ligated with the Harmonic scalpel. Good hemostasis was noted and at that point, all the instruments were removed. The abdomen was desufflated. The port sites were closed with 3-0 Monocryl in subcuticular manner. Sponge, laps, and needles were correct x 2. The patient tolerated the procedure well and was taken to recovery room in stable condition. STERLING DR: Mike TID: [id number]
--- NOTE | 2021-06-27 18:10 | PATHOLOGY ---
[facility] Accession Number: [id number] . 01 Material submitted: . fallopian tube - BILATERAL TUBES. Modifiers: bilateral . 01 Clinical history: . BILATERAL TUBAL LIGATION . 02 Diagnosis: Bilateral tubal ligation: - Segments (2) of fallopian tube confirmed. ([facility]; 06/27/[facility]21) P 06/27/2021 1517 Local . 02 Electronically signed: . Collins Betts MD, Pathologist NPI- [id number] . 01 Gross description: . The specimen is received in formalin, labeled "Jaime, Anika and bilateral tubes". It consists of 2 unoriented tubal segments measuring 1.5 and 3.0 cm long and averaging 0.9 cm in diameter. The serosa appears bennett-brown, well vascularized and smooth. The external surface of the smaller segment is inked blue. Sectioning each fragment reveals an unremarkable lumen with a 0.1 cm wall thickness. A policy services representative section from each segment is submitted in A1. ([facility]; 06/26/2021) MFE/MFE 06/27/2021 1516 Local . 02 Pathologist provided ICD-10: Z30.2 . 02 CPT . 003845 Specimen Comment: A courtesy copy of this report has been sent to [phone] Specimen Comment: Report sent to Performed at: [address], [place] [id number] MD Tanner Peña MD Phone: [phone] [facility]formed [facility]: [facility] [address] [place], [place] [id number] MD Collins Betts MD Phone: [phone]
== END 2021-06-26 12:45 | disposition home or self-care (01) ==
LOC: SURG 08:02
PROVIDERS: ATTEND Obstetrics & Gynecology
DX: Z30.2 Encounter for sterilization (principal); F32.9 Major depressive disorder, single episode, unspecified; F17.210 Nicotine dependence, cigarettes, uncomplicated; Z64.1 Problems related to multiparity; Z87.442 Personal history of urinary calculi; Z79.899 Other long term (current) drug therapy; Z98.890 Other specified postprocedural states
CPT/HCPCS: 36415; 58670; 81025; 85025; 86850; 86900; 86901; A4364; A4930; A6219; J1100; J2250; J2405; J2704; J2710; J3010; J3490; A4452; A4657